=== PATIENT | male | born 1985 ===

== ENCOUNTER 2025-01-26 05:24 | Day surgery (SDC) | payer OTHER ==
[2025-01-22 10:04] VITALS: BP 125/86
[~2025-01-26] VITALS: Ht 177.8 cm; Wt 113.4 kg
[2025-01-26] MEDS ORDERED: COLACE100 MG PO (09:02)
[2025-01-26] MEDS ORDERED: TRAM1TAB98 PO (09:02)
[2025-01-26] MEDS ORDERED: HEMOSTATIC MATRIX 1 KIT KIT TOP SCH (09:15)
[2025-01-26] MEDS ORDERED: CEFTRIAXONE SODIUM 2,000 MG VIAL IV SCH (09:15)
[2025-01-26] MEDS ORDERED: METRONIDAZOLE/SODIUM CHLORIDE 500 MG/100 ML PIGGYBACK IV SCH (09:15)
[2025-01-26] MEDS ORDERED: BUPIVACAINE HCL 30 ML VIAL IJ SCH (09:15)
[2025-01-26] MEDS ORDERED: LIDOCAINE HCL 1%/EPINEPHRINE 20ML VIAL IJ SCH (09:15)
[2025-01-26] MEDS ORDERED: DIBUCAINE 30 GM TUBE RECTAL SCH (09:15)
[2025-01-26] MEDS ORDERED: POVIDONE-IODINE SCRUB 118 ML BOTT TOP SCH (09:15)
[2025-01-26] MEDS ORDERED: HYDROGEN PEROXIDE 118 ML SOLUTION TOP SCH (10:00)
== END 2025-01-26 13:40 | disposition home or self-care (01) ==
LOC: CIR.AMB 05:24
PROVIDERS: ATTEND Surgery
DX: K60.321 Anal fistula, complex, initial (principal); K62.89 Other specified diseases of anus and rectum; Z91.013 Allergy to seafood